=== PATIENT | female | born 1980 | race Caucasian/White ===

== ENCOUNTER 2017-08-27 23:19 | Emergency (ER) | payer MEDICAID ==
[~2017-08-27] VITALS: Ht 165.1 cm; Wt 117.3 kg
[~2017-08-27 23:19] MED LIST: CLON0.5T PO
[2017-08-27 23:25] VITALS: BP 143/87
== END 2017-08-28 01:36 | disposition home or self-care (01) ==
LOC: ED 08-28 01:05
DX: R21 Rash and other nonspecific skin eruption (principal); F17.200 Nicotine dependence, unspecified, uncomplicated
CPT/HCPCS: 99283

== ENCOUNTER 2018-05-16 19:37 | Emergency (ER) | payer MEDICAID ==
[~2018-05-16] VITALS: Ht 165.1 cm; Wt 109.3 kg
[2018-05-16 19:41] VITALS: BP 157/98
== END 2018-05-16 20:05 | disposition home or self-care (01) ==
LOC: ED 19:45
DX: L03.211 Cellulitis of face (principal); L03.311 Cellulitis of abdominal wall; L03.114 Cellulitis of left upper limb; L03.113 Cellulitis of right upper limb; I10 Essential (primary) hypertension
CPT/HCPCS: 99283